=== PATIENT | female | born 1985 | race Caucasian/White ===

== ENCOUNTER 2017-04-02 09:53 | Emergency (ER) | payer OTHER ==
[2017-04-02 10:14] VITALS: RESP 16; TEMP 97.8
--- NOTE | 2017-04-02 11:22 | EDPHY ---
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 Lesion the chemicals was checked by the patient who is the truck rental manager and diluted. She did pour out a bucket of the under did chemicals. There is no direct exposure to her skin, eyes, or other mucous membranes. She developed a headache and went outside. She also complained of some throat burning. The exposure to the undiluted chemicals lasted less than an hour. 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 REVIEW OF SYSTEMS: As in HPI, and all other systems reviewed and are negative Smoking Status: Former smoker Physical Exam: General Appearance: Alert, well appearing, speaking full sentences. Eyes: Pupils equal and round no pallor or injection. Extraocular movements intact, pH equals 6 ENT, Mouth: Mucous membranes moist. No lesions. Respiratory: Normal, effort, lungs are clear to auscultation. No wheezes, rales or rhonchi. Cardiovascular: Regular rate and rhythm. S1, S2, no murmurs, gallops or rubs appreciated Gastrointestinal: Abdomen is soft and nontender, no masses, bowel sounds normal. Back: No CVA tenderness, no bony tenderness Neurological: Awake, alert and oriented x 3, no pronator drift, normal gait, no pronator drift Skin: Warm and dry, no rashes. Musculoskeletal: No deformities or tenderness. Extremitie:s full range of motion, no edema Psychiatric: Patient has normal affect, there is no agitation. Constitutional: Initial Vital Signs Temperature (C) 36.6 C 04/02/17 09:58 Heart Rate 71 04/02/17 09:58 Respiratory Rate 16 04/02/17 09:58 Blood Pressure 117/77 04/02/17 09:58 O2 Sat (%) 98 04/02/17 09:58 O2 Delivery Mode Room Air Allergies/Adverse Reactions: amoxicillin Allergy (Intermediate, Verified 04/02/17 10:04) Rash Home Medications: Medication Instructions Recorded Sertraline HCl [Zoloft 100mg (RX)] 100 mg PO DAILY 03/21/12 Strattera 04/02/17 MDM/Departure - [facility] ED Course/Re-evaluation: Patient presents after exposure to chemical fumes at work. There was no topical exposure to skin, eyes were mucous membranes. Poison Control was consulted. Patient was complaining of headache. PH of eyes was checked and was 6. Patient was irrigated with normal saline and on recheck pH was back to 7. Slit-lamp exam revealed no evidence of corneal lesion. Patient's vital signs are stable on respiratory exam was clear. Point control recommended rinsing and gargling and then spitting and then confirming patient could take oral fluids. Patient was able to tolerate drinking fluids without difficulty. Patient was discharged home in stable condition with reassurance. - Depart Disposition: Home, Routine, Self-Care Clinical Impression: Exposure to chemical irritant Condition: Good Additional Instructions: You were seen by Dr. Tawana Wayne today. We found no significant damage from the exposure at this time. You should feel better tomorrow. Return for any worsening or new concerns. Referrals: NONE *PRIMARY CARE P,. [Primary Care Provider] - As per Instructions
[2017-04-02 11:44] VITALS: BP 106/75; PULSE 70; O2SAT 100
== END 2017-04-02 11:40 | disposition home or self-care (01) ==
LOC: CED 09:53
DX: Z77.098 Contact with and (suspected) exposure to other hazardous, chiefly nonmedicinal, chemicals (principal); Z87.891 Personal history of nicotine dependence